=== PATIENT | male | born 1960 | race Two or more races ===

== ENCOUNTER → 2021-11-18 08:48 | Outpatient (BNVA) | payer OTHER, SELFPAY | PROVIDERS: Visit Provider Internal Medicine | DX: M25.532 Pain in left wrist (principal); M25.531 Pain in right wrist | CPT/HCPCS: 29085; 99203 ==

== ENCOUNTER → 2021-11-25 12:53 | Outpatient (BNVA) | payer OTHER, SELFPAY | PROVIDERS: Visit Provider Internal Medicine | DX: M77.8 Other enthesopathies, not elsewhere classified (principal) | CPT/HCPCS: 99214 ==

== ENCOUNTER → 2021-12-03 08:13 | Outpatient (BNVA) | payer OTHER, SELFPAY | PROVIDERS: Visit Provider Internal Medicine | DX: M77.8 Other enthesopathies, not elsewhere classified (principal) | CPT/HCPCS: 99213 ==